=== PATIENT | male | born 1985 | race African-American/Black ===

== ENCOUNTER 2019-11-10 20:46 | Emergency (ER) | payer SELFPAY ==
[~2019-11-10] VITALS: Ht 177.8 cm; Wt 75.0 kg
--- NOTE | 2019-11-10 21:46 | PHYS DOC ---
General Adult EDM: Chief Complaint: SEXUALLY TRANSMITTED DISEASE HPI: HPI: Patient is a 34 year old male who presents for STD treatment. Patient is in the ED with a girlfriend who was diagnosed with 2 STDs last week. Patient denies any symptoms Review of Systems: Review of Systems: Constitutional: Denies fever or chills. [] : Reports STD concern denies dysuria. [] Musculoskeletal: Denies back pain or joint pain. [] Integument: Denies rash. [] Neurologic: Denies headache, focal weakness or sensory changes. [] Psychiatric: Denies depression or anxiety. [] Heart Score: Risk Factors: Risk Factors: DM, Current or recent (<one month) smoker, HTN, HLP, family history of CAD, obesity. Risk Scores: Score 0 - 3: 2.5% MACE over next 6 weeks - Discharge Home Score 4 - 6: 20.3% MACE over next 6 weeks - Admit for Clinical Observation Score 7 - 10: 72.7% MACE over next 6 weeks - Early Invasive Strategies Physical Exam: PE: Constitutional: Well developed, well nourished, no acute distress, non-toxic appearance. [] Abdomen: Bowel sounds normal, soft, no tenderness, no masses, no pulsatile masses. [] Skin: Warm, dry, no erythema, no rash. [] Back: No tenderness, no CVA tenderness. [] Extremities: No tenderness, no cyanosis, no clubbing, ROM intact, no edema. [] Neurologic: Alert and oriented X 3, normal motor function, normal sensory function, no focal deficits noted. [] Psychologic: Affect normal, judgement normal, mood normal. [] EKG: EKG: [] Radiology/Procedures: Radiology/Procedures: [] Course & Med Decision Making: Course & Med Decision Making Pertinent Labs and Imaging studies reviewed. (See chart for details) This is a 34-year-old male patient who presents the ED today requesting STD treatment, the girlfriend was diagnosed with STDs last week. Patient was given standard STD treatment in the ED, education provided to both patient and the girlfriend concerning STDs. Follow-up with the health department as needed. Dragon Disclaimer: Dragon Disclaimer: This electronic medical record was generated, in whole or in part, using a voice recognition dictation system. Departure Departure Impression: Primary Impression: Concern about STD in male without diagnosis Disposition: 01 HOME, SELF-CARE Condition: STABLE Referrals: NO PCP (PCP) Follow-up with your doctor or the health department in 1 to 2 weeks as needed Patient Instructions: Sexually Transmitted Disease, [id number] Additional Instructions: You were treated for sexually transmitted diseases, do not have any intercourse for week. Use protection at all times. Contact all your partners and ask them to seek STD treatment too. Justicifation of Admission Dx: Justifications for Admission: Justification of Admission Dx: N/A NADIYA BARBOSA [employer]TER Nov 10, 2019 21:46
[2019-11-10 21:58] VITALS: BP 127/82
[2019-11-10] MEDS ORDERED: cefTRIAXone IM 250 MG VIAL IM ONE (22:00)
[2019-11-10] MEDS ORDERED: metroNIDAZOLE 500 MG TABLET PO ONE (22:00)
[2019-11-10] MEDS ORDERED: AZITHROMYCIN 250 MG TABLET. PO ONE (22:00)
== END 2019-11-10 22:22 | disposition home or self-care (01) ==
LOC: ER 20:46
DX: Z20.2 Contact with and (suspected) exposure to infections with a predominantly sexual mode of transmission (principal)
CPT/HCPCS: 96372; 99283; J0696

== ENCOUNTER 2020-06-15 11:12 | Emergency (ER) | payer SELFPAY ==
[~2020-06-15] VITALS: Ht 182.9 cm; Wt 75.0 kg
[2020-06-15 11:30] VITALS: BP 161/96
[2020-06-15] MEDS ORDERED: cefTRIAXone IM 500 MG VIAL. IM ONE (12:00)
[2020-06-15] MEDS ORDERED: DOXYCYCLINE HYCLATE 100 MG TABLET PO ONE (12:00)
[2020-06-15] MEDS ORDERED: metroNIDAZOLE 500 MG TABLET PO ONE (12:00)
[2020-06-15] MEDS ORDERED: DOXY100T PO (12:02)
--- NOTE | 2020-06-15 12:03 | PHYS DOC ---
Past Medical History Past Medical History: No Pertinent History Past Surgical History: No Surgical History Smoking Status: Never Smoker Alcohol Use: None General Adult EDM: Chief Complaint: SEXUALLY TRANSMITTED DISEASE HPI: HPI: Patient is a 34 year old male with history of STDs presenting today requesting STD treatment. Patient reports he had unprotected sex and has female discharge and dysuria for the last 3 days. Review of Systems: Review of Systems: Constitutional: Denies fever or chills. [] GI: Denies abdominal pain, nausea, vomiting, bloody stools or diarrhea. [] : Reports dysuria and penile discharge Musculoskeletal: Denies back pain or joint pain. [] Integument: Denies rash. [] Neurologic: Denies headache, focal weakness or sensory changes. [] Psychiatric: Denies depression or anxiety. [] Heart Score: C/O Chest Pain: No Risk Factors: Risk Factors: DM, Current or recent (<one month) smoker, HTN, HLP, family history of CAD, obesity. Risk Scores: Score 0 - 3: 2.5% MACE over next 6 weeks - Discharge Home Score 4 - 6: 20.3% MACE over next 6 weeks - Admit for Clinical Observation Score 7 - 10: 72.7% MACE over next 6 weeks - Early Invasive Strategies Current Medications: Current Medications Medications (Trade) Dose Ordered Sig/Alexa Start Time Stop Time Status Last Admin Dose Admin Ceftriaxone Sodium (Rocephin Im) 500 mg 1X ONCE 06/15/20 12:00 06/15/20 12:01 Doxycycline Hyclate (Vibra-Tab) 100 mg 1X ONCE 06/15/20 12:00 06/15/20 12:01 Metronidazole (Flagyl) 2,000 mg 1X ONCE 06/15/20 12:00 06/15/20 12:01 Allergies: Allergies: Allergies Coded Allergies Type Severity Reaction Last Updated Verified No Known Drug Allergies 11/10/19 No Physical Exam: PE: Constitutional: Well developed, well nourished, no acute distress, non-toxic appearance. [] Skin: Warm, dry, no erythema, no rash. [] Back: No tenderness, no CVA tenderness. [] Extremities: No tenderness, no cyanosis, no clubbing, ROM intact, no edema. [] Neurologic: Alert and oriented X 3, normal motor function, normal sensory function, no focal deficits noted. [] Psychologic: Affect normal, judgement normal, mood normal. [] EKG: EKG: [] Radiology/Procedures: Radiology/Procedures: [] Course & Med Decision Making: Course & Med Decision Making Pertinent Labs and Imaging studies reviewed. (See chart for details) This is a 34-year-old male patient presenting to the ED today for STD treatment. Patient was treated per new guidelines from the CDC. Education provided. Dragon Disclaimer: Dragon Disclaimer: This electronic medical record was generated, in whole or in part, using a voice recognition dictation system. Departure Departure Impression: Primary Impression: Concern about STD in male without diagnosis Disposition: 01 DC HOME SELF CARE/HOMELESS Condition: STABLE Referrals: NO PCP (PCP) follow up with the health department Patient Instructions: Sexually Transmitted Diseases-SportsMed Additional Instructions: You were treated for sexually transmitted diseases. Ensure you complete the prescribed antibiotics. Please follow-up with the health department for further STD concerns. Use protection at all times. Contact your partners and let them know you were treated for STDs and aske them to seek treatment Scripts Doxycycline Hyclate (DOXYCYCLINE HYCLATE) 100 Mg Tablet 1 TAB PO BID, #14 TAB Prov: NADIYA BARBOSA APRN 06/15/20 NADIYA BARBOSA APRN Jun 15, 2020 12:03
[2020-06-15 12:16] LABS: BILIRUBIN,URINE NEGATIVE (NEG); CLARITY,URINE CLEAR; COLOR,URINE YELLOW; NITRITE,URINE NEGATIVE (NEG); PROTEIN,URINE NEGATIVE (NEG-TRACE)
[2020-06-15 12:49] LABS: RBC,URINE 0 /HPF (0-2)
[2020-06-15 12:50] LABS: BACTERIA,URINE FEW /HPF (0-FEW); WBC,URINE OCC /HPF (0-4)
== END 2020-06-15 12:30 | disposition home or self-care (01) ==
LOC: ER 11:12
DX: Z20.2 Contact with and (suspected) exposure to infections with a predominantly sexual mode of transmission (principal)
CPT/HCPCS: 81001; 87491; 87591; 96372; 99283; J0696